=== PATIENT | male | born 1960 | race Caucasian/White ===

== ENCOUNTER 2020-07-15 06:51 | Inpatient (IN) | payer MEDICAID, SELFPAY ==
[2020-07-15] VITALS (15 sets, daily range): BP systolic 105–129; BP diastolic 51–82; PULSE 61–126; RESP 12–19; TEMP 36.4–37.5; O2SAT 93–100; BMI 24.4
--- NOTE | ~2020-07-15 | CT_ITS ---
EXAMINATION: CT abdomen pelvis w con DATE: 07/15/2020 08:26 INDICATION: Perirectal abscess. Lower abdomen pain. TECHNIQUE: Computed tomography (CT) of the abdomen and pelvis was performed with 100 cc Omnipaque 350 intravenous contrast. The dose-length product was 697.42 mGy-cm. Automated exposure control and iter ative reconstruction technique were employed. Automated exposure control and iterative reconstruction technique were employed. COMPARISON: CT dated 07/10/2019 FINDINGS: There is a right perirectal abscess measuring 5.7 x 4 x 2.7 cm. There is thickening of the proximal sigmoid colon with mild pericolonic fatty infiltration. No definite obstruction. Moderate gallbladder distention. No radiopaque stones identified. No biliary dilatation. Fatty infilt ration of the liver. There is dependent atelectasis. The spleen, pancreas, adrenal glands are unremarkable. There is a 9 m m nonobstructing left renal stone. There are small subcentimeter hypodensities of the right kidney, m ost likely benign cysts. Gallbladder is distended. Normal appendix. There is a right hip arthroplasty . There is a small fat-containing periumbilical hernia. No significant vascular abnormality. No lymph adenopathy. Prostate gland is enlarged. IMPRESSION: 1. Right perirectal abscess measuring 5.7 x 4 x 2.7 cm. 2: Abnormal thickening of the proximal sigmoid colon which may reflect focal colitis or malignancy. R ecommend GI consultation. 3: Moderate gallbladder distention, nonspecific. Reviewed, dictated and finalized at location B. IMPRESSION: 1. Right perirectal abscess measuring 5.7 x 4 x 2.7 cm. 2: Abnormal thickening of the proximal sigmoid colon which may reflect focal co litis or malignancy. Recommend GI consultation. 3: Moderate gallbladder distention, nonspecific.
[2020-07-15 07:12] LABS: Basophils Absolute Auto 0.1 K/mm3 (0.0-0.1); Basophils Percent Auto 0.4 % (0.2-1.2); Eosinophils Percent Auto 0.1 % (0-4.4); Hematocrit 37.2 % (42.0-52.0); Hemoglobin 11.5 g/dL (14.0-18.0); Immature Granulocyte Absolute 0.09 K/mm3 (0.00-0.031); Immature Granulocyte Percent A 0.5 % (0-0.5); Lymphocytes Absolute Auto 1.47 K/mm3 (0.9-3.2); Lymphocytes Percent Auto 8.6 % (18.3-44.2); Mean Corpuscular HGB Conc 30.9 g/dl (32-36); Mean Corpuscular Hemoglobin 26.9 pg (26-34); Mean Corpuscular Volume 86.9 fl (80-100); Mean Platelet Volume 8.6 fl (7.4-10.4); Monocytes Absolute Auto 1.1 K/mm3 (0.1-0.6); Monocytes Percent Auto 6.4 % (2.6-8.5); Neutrophils Absolute Auto 14.4 K/mm3 (1.3-6.7); Platelet Count Result 442 k/mm3 (150-375); Red Blood Count 4.28 M/mm3 (4.6-6.20); Red Cell Distribution Width 19.2 % (11.5-14.5); White Blood Count 17.1 K/mm3 (4.5-10.0)
[2020-07-15] MEDS: ONDANSETRON INJ 4 MG/2 ML VIAL IV PUSH (07:23)
[2020-07-15] MEDS: LACTATED RINGERS 1,000 ML 999 ML IV CONT ×2 (07:25→07:26)
[2020-07-15 07:32] LABS: Glucose 153 mg/dL (75-110)
--- NOTE | 2020-07-15 07:49 | ED.ABDPAIN ---
HPI - Abdominal Pain General Chief Complaint: Abdominal Pain Stated Complaint: abd pain Time Seen by Provider: 07/15/20 07:00 Source: patient Mode of arrival: ambulatory Limitations: no limitations History of Present Illness HPI narrative: This patient is a 59 year old male with history of Chrohn's who presents for evaluation of diarrhea, vomiting, abdominal pain and buttock cyst. Patient reports he has had diarrhea and lower abdominal pain for 2 months. He also has been having nausea and vomiting. He reports multiple episodes last night, and he believes he is dehydrated. He had a colonoscopy performed for these symptoms last month , and he was diagnosed with Chrohn's flare. He is taking norco 10/325, gabapentin, inflectra, and steroid medications. This morning he woke up with diaphoretic with nausea and vomiting. He also noticed a cyst to his buttock that is painful. He noticed this cyst on Related Data Home Medications Medication Instructions Recorded Confirmed hydrocodone-acetaminophen 1 tablet PO BID PRN 07/15/20 07/15/20 Allergies Allergy/AdvReac Type Severity Reaction Status Date / Time No Known Allergies Allergy Verified 07/15/20 07:03 Review of Systems Review of Systems: All systems reviewed & are unremarkable except as noted in HPI and below Constitutional: Constitutional: Reports chills, Reports fatigue and Reports fever(s) (subjective) Cardiovascular: Cardiovascular: Denies chest pain Gastrointestinal: Gastrointestinal: Reports abdominal pain, Reports diarrhea, Reports nausea and Reports vomiting Neurologic: Reports weakness PMFSH Past Medical History Medical History (Updated 07/15/20 @ 18:23 by Indira Oneill MD) Crohn's disease Surgical History Surgical History (Updated 07/15/20 @ 13:00 by Taylor Ballesteros NP) History of right hip replacement Family History Family History Father Esophageal cancer Sibling Asthma Social History Social History (Updated 07/15/20 @ 13:03 by Taylor Ballesteros NP) Social History: patient is and is from [facility]. His sister Collette reyes is the durable power securities attorney for healthcare. The patient is a full code. He has 1 child. He is a lifelong nonsmoker. He does use any marijuana or illicit drugs. Does not use any alcohol. 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 He is here did doing a job. Smoking status: Never smoker Alcohol intake: never Substance use: never Gender identity (if verbalized by the patient): Male Spiritual care concerns: No Exam Const: General: alert and ill appearing; No no acute distress Orientation/consciousness: patient oriented x3 Eyes: EOM: EOMs intact bilaterally Chest: Chest palpation & inspection: normal inspection of the chest Resp: Effort & Inspection: normal respiratory effort and no retractions Auscultation: clear to auscultation bilaterally Cardio: Rate: tachycardic Rhythm: regular rhythm Heart sounds: no murmurs GI: GI Palp: Yes Soft to palpation, Yes Tenderness to palpation present (GI) (LLQ), No Guarding due to palpation present (GI), No Rigid due to palpation and No Hernia present Rectal Exam: buttock abscess (right perirectal area of tenderness, erythema, fluctance, no drainage) Skin: General skin exam: normal color Rashes: no rashes Neuro: General: patient oriented x3 and moves all extremities Course Consultations Consultation #1: I discussed case with Dr. Chaney who states he recommeds admission to hospitalist. Keep him NPO and he will try to take to OR today for I and D. Date: 07/15/20 Time: 09:36 Vital Signs Vital signs: Vital Signs Temperature 99.5 F 07/15/20 06:55 Pulse Rate 126 H 07/15/20 06:55 Respiratory Rate 18 07/15/20 06:55 Blood Pressure 117/76 07/15/20 06:55 Pulse Oximetry 95 07/15/20 06:55 Temperature 97.6 F 07/15/20
[2020-07-15 08:01] LABS: Lactic Acid Reflex 0.9 mmol/L (0.7-2.1)
[2020-07-15 08:02] LABS: Alanine Aminotransferase 28 U/L (4-50); Albumin Level 3.6 g/dL (3.5-5.1); Alkaline Phosphatase 118 U/L (38-126); Anion Gap 11 mmol/L (8-16); Aspartate Amino Transferase 18 U/L (17-59); Blood Urea Nitrogen 17 mg/dL (9-20); Calcium 8.9 mg/dL (8.4-10.2); Carbon Dioxide 24 mmol/L (22-30); Chloride 100 mmol/L (98-107); Estimated Glomerular Filt Rate > 60; Lipase 13 U/L (23-300); Potassium 3.8 mmol/L (3.4-5.0); Sodium 135 mmol/L (137-145)
[2020-07-15 08:41] LABS: Add Urine Microscopic? YES; Appearance Urine Clear (Clear); Bilirubin Urine Negative (Negative); Blood Urine 1+ (Negative); Color Urine Yellow (Yellow); Glucose Urine UA Negative (Negative); Ketones Urine 2+ mg/dL (Negative); Leukocyte Esterase Ur Negative LEU/UL (Negative); Mucus Urine Rare /lpf; Nitrate Urine Negative (Negative); Protein Urine 1+ mg/dL (Negative); Specific Grav Ur 1.018 (1.001-1.035); Transitional Epi Cells Urine Rare /hpf (None Seen); Urobilinogen Urine Negative mg/dL (<2.0); WBC Urine 0-3 /hpf
[2020-07-15] MEDS: SODIUM CHLORIDE 0.9% IV 1,000 ML 125 ML IV CONT (11:23)
--- NOTE | 2020-07-15 11:36 | ADMGEN ---
This patient, Frank King, was admitted to Medical Room 242-. Patient/family oriented to hospital policies and general routines including ID bracelet, bed and alarms, visiting hours, pain management, procedures, bathroom and other care routines, personal items, smoking policy, room service/diet, and visiting hours. Valuables list has been completed. Information on how to activate the Rapid Response Team has been discussed. Patient/Family are encouraged to report perceived risks to care and to ask questions if they do not understand what they are told or what they should do.
--- NOTE | 2020-07-15 11:54 | PM.CNGS ---
Assessment and Plan Assessment and plan (1) Perirectal abscess: Code(s): K61.1 - Rectal abscess Status: Acute Assessment and Plan: the patient has evidence of a perirectal abscess. I have discussed the findings with the patient. He is too tender on physical exam to attempt bedside incision and drainage. I have recommended I&D of perirectal abscess in the OR under IV sedation. I discussed the procedure, risks, benefits, and alternatives. I discussed the typical wound care required for this postoperatively. Since [place], he will likely need to follow-up with a physician back home once he is discharged from the hospital. (2) Sepsis: Qualifiers: Sepsis type: sepsis due to unspecified organism Sepsis acute organ dysfunction status: without acute organ dysfunction Qualified Code(s): A41.9 - Sepsis, unspecified organism Code(s): A41.9 - Sepsis, unspecified organism Status: Acute Assessment and Plan: Tachycardic and elevated white blood count on presentation. Likely related to perirectal abscess. (3) Crohn's disease: Qualifiers: Gastrointestinal tract location: unspecified location Digestive disease complication type: without complication Qualified Code(s): K50.90 - Crohn's disease, unspecified, without complications Code(s): K50.90 - Crohn's disease, unspecified, without complications Status: Acute Additional Plan Thank you very much for allowing us to aid in the care of this patient. History of Present Illness Consult details Consult date: 07/15/20 Requesting physician: Indira Oneill MD Narrative: This is a 59-year-old man who presented to the emergency department with complaints of perirectal pain and swelling. 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 He states that this has been hurting him for about 4 days. Pain has been progressively worsening. He has never had anything like this in the past. He was recently diagnosed with Crohn's disease within the past couple months. He states he was having persistent chronic diarrhea and subsequently had a colonoscopy and this showed evidence of Crohn's. He is on oral steroids for this. He denies any prior history of perirectal abscesses or fistulas. A CT was obtained in the emergency department and this showed evidence of a large right perirectal abscess. Patient is having significant pain and is extremely uncomfortable with physical exam. Review of Systems Review of Systems: All systems reviewed & are unremarkable except as noted in HPI and below Eyes: Eyes: Denies change in vision ENT: Denies hearing loss, Denies neck pain and Denies sore throat Cardiovascular: Cardiovascular: Denies chest pain and Denies dyspnea Respiratory: Respiratory: Denies cough, Denies dyspnea and Denies wheezing Gastrointestinal: Gastrointestinal: Reports diarrhea Genitourinary: Genitourinary: Denies hematuria and Denies dysuria Musculoskeletal: Musculoskeletal: Denies arthralgias, Denies joint swelling and Denies neck pain Allergic/Immunologic: Allergic/Immunologic: Denies wheezing PMFSH Family History Family History Father Esophageal cancer Sibling Asthma Social History Social History Smoking status: Never smoker Alcohol intake: never Substance use: never Gender identity (if verbalized by the patient): Male Spiritual care concerns: No Meds Home Medications and Allergies Home Medications Medication Instructions Recorded Confirmed Type hydrocodone-acetaminophen 1 tablet PO BID PRN 07/15/20 07/15/20 History Allergies Allergy/AdvReac Type Severity Reaction Status Date / Time No Known Allergies Allergy Verified 07/15/20 07:03 Vital Signs Vital Signs - 24 hr 07/15/20 06:55 07/15/20 09:13 07/15/20 10:57 Temperature 37.5 C 36.5
--- NOTE | 2020-07-15 12:54 | PM.IMHP ---
H&P: HPI History of Present Illness Date/Time: 07/15/20 12:54 Chief complaint: chrohn's disease, perirectal abscess Narrative: Frank King is a 59 year old male Who has no past medical history. 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 The patient had a colonoscopy approximately 1 week ago was diagnosed with Crohn's. He was placed on [place], gabapentin, and steroid medication. The patient stated that his sacral area developed some soreness on this past . He did not notice that he had an abscess on a sacral area. Today acute he came into the emergency room with complaints of diarrhea vomiting and diarrhea in a box cyst. The patient has been having abdominal pain for 2 months and had a colonoscopy for diagnosis. Patient woke up today with diaphoresis nausea vomiting. He discovered that his cyst has been pretty painful today. Patient had a 99.5 temperature. H&H 11.5 and 37.2. H&H 11.5 and 37.2. Right perirectal abscess measuring 5.7 times for high as 2.7 cm abnormal thickening of the proximal sigmoid colon which may reflect focal colitis or malignancy recommend GI consult. Moderate gallbladder distention nonspecific. Patient had a colonoscopy 1 week ago. Patient was started on IV fluids he was started on IV Zosyn and given [place] in the ER. Date of service 07/15/2020 Review of Systems Review of Systems: All systems reviewed & are unremarkable except as noted in HPI and below Constitutional: Constitutional: Reports as per HPI and Reports no additional constitutional complaints Eyes: Eyes: Reports as per HPI and Reports no additional eye complaints ENT: Reports system reviewed and no additional complaints, except as documented and Reports Normal hearing present Cardiovascular: Cardiovascular: Reports no additional cardiovascular complaints Respiratory: Respiratory: Reports no additional respiratory complaints and Reports no additional respiratory complaints Gastrointestinal: Gastrointestinal: Reports as per HPI and Reports no additional gastrointestinal complaints Musculoskeletal: Musculoskeletal: Reports no additional musculoskeletal complaints Integumentary/Breasts: Skin/Breast: Reports system reviewed and no additional complaints, except as docu and Reports as per HPI Neurologic: Reports system reviewed and no additional complaints, except as documented, Reports as per HPI and Reports Normal hearing present Psychiatric: Psychiatric: Reports no additional psychiatric complaints and Reports as per HPI Endocrine: Endocrine: Reports no additional endocrine complaints Hematologic/Lymphatic: Hematologic/Lymphatic: Reports no additional hematologic/lymphatic complaints Allergic/Immunologic: Allergic/Immunologic: Reports no additional allergic/immunologic complaints [facility] Surgical History Surgical History (Updated 07/15/20 @ 13:00 by Taylor Ballesteros NP) History of right hip replacement Family History Family History Father Esophageal cancer Sibling Asthma Social History Social History (Updated 07/15/20 @ 13:03 by Taylor Ballesteros NP) Social History: patient is and is from [facility]. His sister Collette reyes is the durable power defense attorney for healthcare. The patient is a full code. He has 1 child. He is a lifelong nonsmoker. He does use any marijuana or illicit drugs. Does not use any alcohol. 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 Smoking status: Never smoker Alcohol intake: never Substance use: never Gender identity (if verbalized by the patient): Male Spiritual care concerns: No Meds Home Medications and Allergies Home Medications Medication Instructions Recorded Confirmed Type hydrocodone-acetaminophen 1 tablet PO BID PRN 07/15/20 07/15/20 History Allergies Allergy/AdvReac Type Severity Reaction S
[2020-07-15] MEDS: LACTATED RINGERS 1,000 ML 30 ML IV CONT (13:45)
--- NOTE | 2020-07-15 13:45 | PC.NURSE ---
To OR per bed, IV intact. Report given to MALLY Reyes.
--- NOTE | 2020-07-15 14:09 | WPDANESEPPF ---
Anes - Initial Pre Proc Eval Procedure: Operation Date: 07/15/20 15:00 Proposed Procedures p Incision and Drainage Nicole-Rectal Abscess - Albert Reddy DO Date/Time: 07/15/20 14:09 Surgeon: Maureen Pre Op Diagnosis: chrohn's disease, perirectal abscess Patient Data Age: 59 Gender: M Height: 1.88 m Weight: 86.2 kg Last Vital Signs Temp 36.8 C 07/15/20 13:52 Pulse 102 H 07/15/20 13:52 Resp 16 07/15/20 13:52 BP 120/71 07/15/20 13:52 Pulse Ox 95 07/15/20 13:52 Allergies Allergy/AdvReac Type Severity Reaction Status Date / Time No Known Allergies Allergy Verified 07/15/20 07:03 Home Medications Medication Instructions Recorded Confirmed Type hydrocodone-acetaminophen 1 tablet PO BID PRN 07/15/20 07/15/20 History Laboratory Tests 07/15/20 07/15/20 07/15/20 07:02 07:02 07:42 WBC 17.1 K/mm3 H K/mm3 (4.5-10.0) RBC 4.28 M/mm3 L M/mm3 (4.6-6.20) Hgb 11.5 g/dL L g/dL (14.0-18.0) Hct 37.2 % L % (42.0-52.0) MCV 86.9 fl fl (80-100) MCH 26.9 pg pg (26-34) MCHC 30.9 g/dl L g/dl (32-36) RDW 19.2 % H % (11.5-14.5) Plt Count 442 k/mm3 H k/mm3 (150-375) MPV 8.6 fl fl (7.4-10.4) Immature Gran % (Auto) 0.5 % % (0-0.5) Neut % (Auto) 84.0 % H % (45.5-73.1) Lymph % (Auto) 8.6 % L % (18.3-44.2) [place] % (Auto) 6.4 % % (2.6-8.5) Eos % (Auto) 0.1 % % (0-4.4) Baso % (Auto) 0.4 % % (0.2-1.2) Lymph # (Auto) 1.47 K/mm3 K/mm3 (0.9-3.2) [place] # (Auto) 1.1 K/mm3 H K/mm3 (0.1-0.6) Eos # (Auto) 0.0 K/mm3 K/mm3 (0-0.3) Baso # (Auto) 0.1 K/mm3 K/mm3 (0.0-0.1) Abs Immat Gran (auto) 0.09 K/mm3 H K/mm3 (0.00-0.031) Absolute Neuts (auto) 14.4 K/mm3 H K/mm3 (1.3-6.7) Absolute Nucleated RBC 0.0 K/mm3 K/mm3 (0.0-0.012) Nucleated RBC % 0.0 % % (0.0-0.2) Sodium 135 mmol/L L mmol/L (137-145) Potassium 3.8 mmol/L mmol/L (3.4-5.0) Chloride 100 mmol/L mmol/L (98-107) Carbon Dioxide 24 mmol/L mmol/L (22-30) Anion Gap 11 mmol/L mmol/L (8-16) BUN 17 mg/dL mg/dL (9-20) Creatinine 0.60 mg/dL L mg/dL (0.7-1.3) Estim Creat Clear Calc Not Reportable Estimated GFR > 60 (59 - ) Glucose 153 mg/dL H mg/dL (75-110) Lactic Acid 0.9 mmol/L mmol/L (0.7-2.1) Calcium 8.9 mg/dL mg/dL (8.4-10.2) Total Bilirubin 1.0 mg/dL mg/dL (0.2-1.3) AST 18 U/L U/L (17-59) ALT 28 U/L U/L (4-50) Alkaline Phosphatase 118 U/L U/L (38-126) Total Protein 7.0 g/dL g/dL (6.3-8.2) Albumin 3.6 g/dL g/dL (3.5-5.1) Lipase 13 U/L L U/L (23-300) Urine Color Urine Appearance Urine pH Ur Specific [place] Urine Protein Urine Glucose (UA) Urine Ketones Ur Blood (Man) Urine Nitrate Urine Bilirubin Urine Urobilinogen Leukocyte Esterase Rfl Urine RBC Urine WBC Ur Transition Epith Cell Hyaline Casts Urine Mucus 07/15/20 08:20 WBC RBC Hgb Hct MCV MCH MCHC RDW Plt Count MPV Immature Gran % (Auto) Neut % (Auto) Lymph % (Auto) [place] % (Auto) Eos % (Auto) Baso % (Auto) Lymph # (Auto) [place] # (Auto) Eos # (Auto) Baso # (Auto) Abs Immat Gran (auto) Absolute Neuts (auto) Absolute Nucleated RBC Nucleated RBC % Sodium Potassium Chloride Carbon Dioxide Anion Gap BUN Creatinine
--- NOTE | 2020-07-15 14:46 | WPDHPUPDATE1 ---
History and Physical Update Update Date/Time: 07/15/20 14:46 History and Physical has been reviewed, including an updated exam of the patient. There are NO changes in the patient's condition. Risks, benefits, and alternatives have been discussed and questions answered. Patient agrees to proceed with procedure.
[2020-07-15] MEDS: KETOROLAC 30 MG/ML VIAL (*BKC) 15 MG IV PUSH (15:27)
--- NOTE | 2020-07-15 15:36 | P.OP_ITS ---
Procedure Note - Detailed Date of procedure: 07/15/20 Pre-op diagnosis: chrohn's disease, perirectal abscess Post-op diagnosis: same ( right posterior perirectal abscess) Procedure performed: Incision and drainage of complex perirectal abscess Description of procedure: * Procedure as well as risks, benefits, and alternatives were discussed with the patient. Written consent was obtained and placed in chart prior to procedure. Patient was brought back to surgical suite. He was placed supine on operating table. Time-out was done to confirm patient and procedure. He was placed under general anesthesia with an LMA by the anesthesia department. He was then repositioned to dorsal lithotomy position. His perirectal area was prepped and draped in sterile fashion using Betadine prep. His perirectal region was carefully inspected. A right posterior abscess was identified with fluctuance and a small opening with purulence drainage. 0.5% bupivacaine with epinephrine was infiltrated locally around this area. A 3 cm incision was then made using a 15 blade scalpel over the area of fluctuance. Purulence fluid was drained and the abscess cavity was completely evacuated. Loculations were broken up using blunt dissection. Hemostasis was then achieved with electrocautery. The area was irrigated with sterile saline. No other abnormalities were identified. 1/2 inch iodoform gauze was then packed within the wound. 4 x 4 gauze, ABD pad, and mesh underwear were applied. The patient was then awakened from anesthesia, extubated, and transferred to recovery. 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 He was found to have an elevated white blood count and tachycardia. On exam he had significant pain and swelling with erythema in the right posterior perirectal region. CT confirmed evidence of a perirectal abscess. The patient was also recently diagnosed with Crohn's disease and has been on steroids for this. Discussions were made with the patient about treatment options, and decision was made to proceed with urgent incision and drainage of perirectal abscess. Patient was found to have a right posterior perirectal abscess. There was an area of pinpoint wound opening with purulence drainage in the far right posterior region. This extended more anteriorly towards the right posterior perianal region. An incision was made over this area of fluctuance and a significant amount of purulence was drained. Loculations were broken up and then the wound was packed with half-inch iodoform gauze. No specimens were obtained for pathology.
[2020-07-15] MEDS: BUPIVACAINE/EPINEPHRINE 0.5% 30 ML VIAL INFILTRATE (15:39)
--- NOTE | 2020-07-15 16:47 | PC.NURSE ---
Returned from OR per bed. Report received from MALLY Dixon.
[2020-07-15] MEDS: MORPHINE SULFATE 2 MG/ML INJ IV PUSH (18:42)
[2020-07-15] MEDS: LACTATED RINGERS 1,000 ML 100 ML IV CONT (19:51)
[2020-07-16] MEDS: MORPHINE SULFATE 4 MG/ML INJ IV PUSH (02:34)
[2020-07-16 02:37] VITALS: BP 123/62; PULSE 68; RESP 14; TEMP 36.7; O2SAT 97
[2020-07-16 05:27] LABS: Basophils Percent Auto 0.1 % (0.2-1.2); Hematocrit 32.1 % (42.0-52.0); Hemoglobin 9.6 g/dL (14.0-18.0); Immature Granulocyte Absolute 0.04 K/mm3 (0.00-0.031); Immature Granulocyte Percent A 0.5 % (0-0.5); Lymphocytes Percent Auto 13.8 % (18.3-44.2); Mean Corpuscular HGB Conc 29.9 g/dl (32-36); Mean Corpuscular Hemoglobin 26.3 pg (26-34); Mean Corpuscular Volume 87.9 fl (80-100); Mean Platelet Volume 9.2 fl (7.4-10.4); Monocytes Absolute Auto 0.4 K/mm3 (0.1-0.6); Monocytes Percent Auto 4.4 % (2.6-8.5); Neutrophils Absolute Auto 6.5 K/mm3 (1.3-6.7); Neutrophils Percent Auto 81.2 % (45.5-73.1); Platelet Count Result 372 k/mm3 (150-375); Red Blood Count 3.65 M/mm3 (4.6-6.20); Red Cell Distribution Width 18.6 % (11.5-14.5)
[2020-07-16 05:46] LABS: Alanine Aminotransferase 19 U/L (4-50); Albumin Level 2.9 g/dL (3.5-5.1); Alkaline Phosphatase 86 U/L (38-126); Anion Gap 5 mmol/L (8-16); Aspartate Amino Transferase 13 U/L (17-59); Bilirubin,Total 0.3 mg/dL (0.2-1.3); Blood Urea Nitrogen 13 mg/dL (9-20); Calcium 8.3 mg/dL (8.4-10.2); Carbon Dioxide 26 mmol/L (22-30); Chloride 107 mmol/L (98-107); Estimated CRCL calculation 128 ml/min; Estimated Glomerular Filt Rate > 60; Glucose 148 mg/dL (75-110); Potassium 4.1 mmol/L (3.4-5.0); Sodium 138 mmol/L (137-145)
[2020-07-16 06:00] VITALS: BP 97/58; PULSE 63; RESP 18; TEMP 36.5; O2SAT 97
[2020-07-16] MEDS: MORPHINE SULFATE 2 MG/ML INJ IV PUSH ×2 (08:21→22:32)
[2020-07-16] MEDS: ENOXAPARIN 40 MG/0.4 ML SYRINGE SUB-Q (08:22)
--- NOTE | 2020-07-16 09:20 | P.PNAN_ITS ---
Anes - Prog Note Post-Op Date/Time: 07/16/20 09:20 Cardiovascular status: normal Respiratory status: normal Airway patency: baseline Mental status: baseline Post-Op hydration status: normal Vital Signs: Last Vital Signs Temp 36.5 C 07/16/20 06:00 Pulse 63 07/16/20 06:00 Resp 18 07/16/20 06:00 BP 97/58 L 07/16/20 06:00 Pulse Ox 97 07/16/20 06:00 Pain Score (VAS): 0 I/O: Intake & Output 07/15/20 07/16/20 07/16/20 23:59 07:59 15:59 Intake Total 9010 589 7612 Output Total 1250 Balance 1470 -600 1240 Laboratory Tests 07/16/20 05:01 07/16/20 05:01 07/16/20 07/16/20 05:01 05:01 WBC 8.0 RBC 3.65 L Hgb 9.6 L Hct 32.1 L MCV 87.9 MCH 26.3 MCHC 29.9 L RDW 18.6 H Plt Count 372 MPV 9.2 Immature Gran % (Auto) 0.5 Neut % (Auto) 81.2 H Lymph % (Auto) 13.8 L [place] % (Auto) 4.4 Eos % (Auto) 0.0 Baso % (Auto) 0.1 L Lymph # (Auto) 1.10 [place] # (Auto) 0.4 Eos # (Auto) 0.0 Baso # (Auto) 0.0 Abs Immat Gran (auto) 0.04 H Absolute Neuts (auto) 6.5 Absolute Nucleated RBC 0.0 Nucleated RBC % 0.0 Sodium 138 Potassium 4.1 Chloride 107 Carbon Dioxide 26 Anion Gap 5 L BUN 13 Creatinine 0.60 L Estim Creat Clear Calc 128 Estimated GFR > 60 Glucose 148 H Calcium 8.3 L Total Bilirubin 0.3 AST 13 L ALT 19 Alkaline Phosphatase 86 Total Protein 6.0 L Albumin 2.9 L Post-procedural complaints: none Patient Feedback: Patient satisfied with anesthetic care.
[2020-07-16 10:26] VITALS: O2SAT 96
--- NOTE | 2020-07-16 11:03 | PM.IMPN ---
Progress Note: A&P Assessment and Plan (1) Perirectal abscess: Code(s): K61.1 - Rectal abscess Status: Acute Assessment and Plan: He is s/p incision and drainage by Dr. Reddy performed on 07/15/2020. He tolerated the procedure well and pain is well controlled. General surgery is following and recommendations are appreciated. Continue with Zosyn at this time. Blood cultures are pending. No specimens from I&D obtained for pathology. Appreciate surgery recommendations for antibiotics. Analgesics as needed for pain (2) Sepsis: Qualifiers: Sepsis type: sepsis due to unspecified organism Sepsis acute organ dysfunction status: without acute organ dysfunction Qualified Code(s): A41.9 - Sepsis, unspecified organism Code(s): A41.9 - Sepsis, unspecified organism Status: Acute Assessment and Plan: Suspected source of infection is perirectal abscess. Patient met SIRS criteria with tachycardia and leukocytosis. BP is on lower end. WBC was 17.0 at admission and has improved to 8.0 today. He remains afebrile. Continue Zosyn as above IV fluids have been discontinued. Patient is tolerating p.o. intake. Blood cultures pending. (3) Crohn's disease: Qualifiers: Gastrointestinal tract location: unspecified location Digestive disease complication type: without complication Qualified Code(s): K50.90 - Crohn's disease, unspecified, without complications Code(s): K50.90 - Crohn's disease, unspecified, without complications Status: Chronic Assessment and Plan: This is a new diagnosis for him. He recently had an inflectra infusion about 1 week ago. He is also on low-dose daily prednisone. Hold p.o. prednisone given active infection. He will need to follow-up with his rn traveling, who is located in [place], where he resides. Subjective Date/time seen: 07/16/20 11:03 Interval history: Date of service: 07/16/2020 Mr. King is a 59-year-old male with a history of Crohn's disease who is seen in follow-up for perirectal abscess. 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 He is s/p I&D by Dr. Reddy on 07/15/2020. He is feeling well today. He reports his pain is well controlled with his pain medication and is rated as 5/10 currently. It was about 7.5 this morning. Pain increases with positional changes. He did report some sweating overnight but denies any fevers, chills, or sweats today. No nausea or vomiting. He ate a good breakfast this morning and his appetite is good. He reports he had been having some diarrhea but has not had any bowel movements today. he has mild lower abdominal pain but denies cramping or bloating. He denies shortness of breath, cough, chest pain, bleeding, bruising, hematuria, dysuria, dizziness, lightheadedness, weakness, or fatigue. Review of Systems Review of Systems: Narrative: A 12 point review of systems was reviewed with pertinent positives and negatives as per HPI. Exam Narrative: Exam Narrative: Mr. King is a well-nourished, well-appearing 59-year-old male who is lying supine in bed. He appears comfortable and is in no acute respiratory distress. HR 63, BP 97/58, RR 18, T 97.7?, 97% on room air Neuro: awake, alert and oriented x4, speech clear, no focal neuro deficits noted HEENMT: normocephalic, atraumatic, EOMI, sclerae anicteric, moist oral mucosa, normal oropharynx Neck: supple, no lymphadenopathy Respiratory: clear to auscultation bilaterally, nonlabored breathing Cardio: regular rate, regular rhythm with S1-S2 Abdomen: nondistended, normoactive bowel sounds, soft, mildly tender to palpation in suprapubic region, no rigidity or guarding Rectal: rectum was inspected, covered with bandage that is c/d/i Extremities: no edema, erythema, cyanosis, clubbing, or tenderness to palpation, DP pulses 2+ bilaterally Skin: no
--- NOTE | 2020-07-16 13:21 | PM.PNGS ---
Progress Note: A&P Assessment and Plan (1) Perirectal abscess: Code(s): K61.1 - Rectal abscess Status: Acute Assessment and Plan: Packing removed today. May shower. Change gauze daily. Continue antibiotics. (2) Sepsis: Code(s): A41.9 - Sepsis, unspecified organism Status: Acute (3) Crohn's disease: Qualifiers: Gastrointestinal tract location: unspecified location Digestive disease complication type: without complication Qualified Code(s): K50.90 - Crohn's disease, unspecified, without complications Code(s): K50.90 - Crohn's disease, unspecified, without complications Status: Chronic Subjective Subjective Date/Time Seen: 07/16/20 13:21 Still having some pain. No fevers. Having drainage from wound. Exam GI: Other: Right posterior perirectal abscess incision has scant purulent drainage. No surrounding erythema. No fluctuance. Objective Data Vital Signs Vital Signs: Vital Signs - 24 hr 07/15/20 13:52 07/15/20 15:37 07/15/20 15:45 Temperature 36.8 C 36.6 C Pulse Rate 102 H 95 87 Respiratory Rate 16 15 14 Blood Pressure 120/71 117/82 115/80 Pulse Oximetry 95 100 100 07/15/20 15:50 07/15/20 16:05 07/15/20 16:20 Temperature Pulse Rate 85 91 93 Respiratory Rate 14 12 12 Blood Pressure 111/74 105/71 108/73 Pulse Oximetry 100 97 95 07/15/20 16:35 07/15/20 16:45 07/15/20 17:00 Temperature 36.4 C L 36.7 C Pulse Rate 96 96 86 Respiratory Rate 12 16 16 Blood Pressure 115/76 114/66 118/68 Pulse Oximetry 93 94 95 07/15/20 17:30 07/15/20 18:30 07/15/20 20:12 Temperature 36.4 C 36.4 C 36.6 C Pulse Rate 81 93 61 Respiratory Rate 16 16 14 Blood Pressure 129/71 120/64 120/51 L Pulse Oximetry 97 96 97 07/16/20 02:37 07/16/20 06:00 07/16/20 10:26 Temperature 36.7 C 36.5 C Pulse Rate 68 63 Respiratory Rate 14 18 Blood Pressure 123/62 97/58 L Pulse Oximetry 97 97 96 Intake/Output Intake/Output: Intake & Output 07/13/20 07/14/20 07/15/20 07/16/20 23:59 23:59 23:59 23:59 Intake Total 3620 1940 Output Total 250 1250 Balance 3370 690 Meds/Results Medications: Active Medications Generic Name Dose Route Start Last Admin Trade Name Freq PRN Reason Stop Dose Admin Acetaminophen 650 mg 07/15/20 16:54 Tylenol Tablet PO Q6H PRN Mild Pain (1-3) or Fever Hydrocodone Bitart/Acetaminophen 1 tab 07/15/20 16:54 [place] 5-325 Mg PO Q4H PRN Pain Rated 4-6 Hydrocodone Bitart/Acetaminophen 1 tab 07/15/20 16:54 07/16/20 10:18 [place] 7.5-325 Mg PO 1 tab Q4H PRN Administration Pain Rated 7-10 Enoxaparin Sodium 40 mg 07/16/20 09:00 07/16/20 08:22 Lovenox SUB-Q 40 mg DAILY ARMANI Administration Piperacillin/Tazobactam/Dextrose 3.375 gm in 50 mls @ 100 mls/hr 07/15/20 15:00 07/16/20 08:51 Zosyn 3.375 Gm/D5w 50ml Pm IVPB Infused Q6H ARMANI Infusion Morphine Sulfate 2 mg 07/15/20 16:54 07/16/20 08:21 Morphine Sulfate Inj IV PUSH 2 mg Q2H PRN Administration Pain Rated 4-6 Morphine Sulfate 4 mg 07/15/20 16:54 07/16/20 02:34 Morphine Sulfate Inj IV PUSH 4 mg Q2H PRN Administration Pain Rated 7-10 Ondansetron HCl 4 mg 07/15/20 09:56 Zofran Inj IV PUSH Q4H PRN Nausea Radiology Results: ITS Impressions Abdomen/Pelvis CT 07/15/20 08:40 IMPRESSION: 1. Right perirectal abscess measuring 5.7 x 4 x 2.7 cm. 2: Abnormal thickening of the proximal sigmoid colon which may reflect focal colitis or malignancy. Recommend GI consultation. 3: Moderate gallbladder distention, nonspecific. Labs Labs: Laboratory Results - last 24 hr 07/16/20 07/16/20 05:01 05:01 WBC 8.0 RBC 3.65 L Hgb 9.6 L Hct 32.1 L MCV 87.9 MCH 26.3 MCHC 29.9 L RDW 18.6 H Plt Count 372 MPV 9.2 Immature Gran % (Auto) 0.5 Neut % (Auto) 81.2 H Lymph % (Auto) 13.8 L Coleman % (Auto) 4.4 Eos % (Auto) 0.0 Baso % (Aut
--- NOTE | 2020-07-16 13:33 | WPDGICN ---
Assessment and Plan Assessment and plan (1) Nicole-rectal abscess: Code(s): K61.1 - Rectal abscess Status: Acute Assessment and Plan: feeling better after I&D, continue with antibiotics (2) Acute Crohn's disease: Code(s): K50.90 - Crohn's disease, unspecified, without complications Status: Acute Assessment and Plan: he will be due to have next dose inflectra next week by his GI doctor in [place] will give iv solumedrol for now (he was on oral prednisone) and continue to monitor (3) Sepsis: Code(s): A41.9 - Sepsis, unspecified organism Status: Acute Assessment and Plan: better after drainage of abscess (4) Leukocytosis: Code(s): D72.829 - Elevated white blood cell count, unspecified Status: Acute Assessment and Plan: improved after drainage (5) Diarrhea: Code(s): R19.7 - Diarrhea, unspecified Status: Acute GI Consult Note Consult date/time: 07/16/20 13:33 Reason for consult: crohn's with perianal abscess HPI: Frank King is a 59 year old male 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 He came to the emergency department with perirectal pain and swelling over the past 4 days. He had elevated white blood count and tachycardia. CT confirmed evidence of a perirectal abscess, also abnormal thickening of the proximal sigmoid colon and taken to OR by surgery for I&D, on antibiotics and feeling better Review of Systems Constitutional: Constitutional: Reports chills and Denies weakness Eyes: Eyes: Denies blurry vision ENT: Reports Normal hearing present, Denies headache(s) and Denies neck pain Cardiovascular: Cardiovascular: Denies chest pain and Denies dyspnea Respiratory: Respiratory: Denies dyspnea Gastrointestinal: Gastrointestinal: Reports no additional gastrointestinal complaints Genitourinary: Genitourinary: Denies dysuria Musculoskeletal: Musculoskeletal: Denies neck pain Integumentary/Breasts: Skin/Breast: Denies dry skin Neurologic: Reports Normal hearing present, Denies headache(s) and Denies weakness Psychiatric: Psychiatric: Denies anxiety Endocrine: Endocrine: Denies change in body appearance Hematologic/Lymphatic: Hematologic/Lymphatic: Denies easy bleeding Allergic/Immunologic: Allergic/Immunologic: Denies urticaria PMFSH Past Medical History Medical History (Updated 07/16/20 @ 13:46 by Arnulfo Munoz MD) Crohn's disease Diarrhea Leukocytosis Surgical History Surgical History (Updated 07/15/20 @ 13:00 by Taylor Ballesteros NP) History of right hip replacement Family History Family History Father Esophageal cancer Sibling Asthma Social History Social History (Updated 07/15/20 @ 13:03 by Taylor Ballesteros NP) Social History: patient is and is from [facility]. His sister Collette reyes is the durable power district attorney for healthcare. The patient is a full code. He has 1 child. He is a lifelong nonsmoker. He does use any marijuana or illicit drugs. Does not use any alcohol. 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 He is here did doing a job. Smoking status: Never smoker Alcohol intake: never Substance use: never Gender identity (if verbalized by the patient): Male Spiritual care concerns: No Meds Home Medications and Allergies Home Medications Medication Instructions Recorded Confirmed Type gabapentin 300 mg PO TID 07/15/20 07/15/20 History hydrocodone-acetaminophen 1 tablet PO BID PRN 07/15/20 07/15/20 History prednisone 10 mg PO QID 07/15/20 07/15/20 History Allergies Allergy/AdvReac Type Severity Reaction Status Date / Time No Known Allerg
[2020-07-16 14:00] VITALS: BP 109/62; PULSE 81; RESP 16; TEMP 36.7; O2SAT 95
[2020-07-16] MEDS: methylPREDNISolone SOD SUCC 40 MG VIAL IV PUSH (14:27)
[2020-07-16 22:00] VITALS: BP 123/70; PULSE 66; RESP 16; TEMP 36.6; O2SAT 95
[2020-07-17] MEDS: methylPREDNISolone SOD SUCC 40 MG VIAL IV PUSH ×2 (02:43→13:59)
[2020-07-17 05:32] LABS: Hematocrit 33.3 % (42.0-52.0); Hemoglobin 10.1 g/dL (14.0-18.0); Immature Granulocyte Absolute 0.06 K/mm3 (0.00-0.031); Immature Granulocyte Percent A 0.8 % (0-0.5); Lymphocytes Absolute Auto 1.46 K/mm3 (0.9-3.2); Lymphocytes Percent Auto 19.1 % (18.3-44.2); Mean Corpuscular HGB Conc 30.3 g/dl (32-36); Mean Corpuscular Hemoglobin 26.9 pg (26-34); Mean Corpuscular Volume 88.8 fl (80-100); Mean Platelet Volume 8.9 fl (7.4-10.4); Monocytes Absolute Auto 0.2 K/mm3 (0.1-0.6); Monocytes Percent Auto 3.1 % (2.6-8.5); Neutrophils Absolute Auto 5.9 K/mm3 (1.3-6.7); Platelet Count Result 440 k/mm3 (150-375); Red Blood Count 3.75 M/mm3 (4.6-6.20); Red Cell Distribution Width 18.4 % (11.5-14.5); White Blood Count 7.7 K/mm3 (4.5-10.0)
[2020-07-17 05:52] LABS: Alanine Aminotransferase 18 U/L (4-50); Albumin Level 3.4 g/dL (3.5-5.1); Alkaline Phosphatase 86 U/L (38-126); Anion Gap 3 mmol/L (8-16); Aspartate Amino Transferase 15 U/L (17-59); Bilirubin,Total 0.2 mg/dL (0.2-1.3); Blood Urea Nitrogen 13 mg/dL (9-20); Calcium 8.6 mg/dL (8.4-10.2); Carbon Dioxide 26 mmol/L (22-30); Chloride 104 mmol/L (98-107); Estimated CRCL calculation 128 ml/min; Estimated Glomerular Filt Rate > 60; Glucose 216 mg/dL (75-110); Potassium 4.3 mmol/L (3.4-5.0); Sodium 133 mmol/L (137-145)
[2020-07-17 06:00] VITALS: BP 145/74; PULSE 61; RESP 18; TEMP 36.4; O2SAT 93
[2020-07-17] MEDS: ENOXAPARIN 40 MG/0.4 ML SYRINGE SUB-Q (08:25)
--- NOTE | 2020-07-17 09:59 | PM.PNGS ---
Progress Note: A&P Assessment and Plan (1) Nicole-rectal abscess: Code(s): K61.1 - Rectal abscess Status: Acute Assessment and Plan: Continues to improve. OK to discharge from surgical standpoint. Follow up with PCP/GI back home. Continue daily dressing changes until wound heals. (2) Crohn's disease: Qualifiers: Gastrointestinal tract location: unspecified location Digestive disease complication type: without complication Qualified Code(s): K50.90 - Crohn's disease, unspecified, without complications Code(s): K50.90 - Crohn's disease, unspecified, without complications Status: Chronic Subjective Subjective Date/Time Seen: 07/17/20 09:59 Much less drainage from wound today. Pain gradually improving. No fevers. Exam GI: Other: Perirectal abscess wound healing with minimal drainage. No erythema. Objective Data Vital Signs Vital Signs: Vital Signs - 24 hr 07/16/20 10:26 07/16/20 14:00 07/16/20 22:00 Temperature 36.7 C 36.6 C Pulse Rate 81 66 Respiratory Rate 16 16 Blood Pressure 109/62 123/70 Pulse Oximetry 96 95 95 07/17/20 06:00 Temperature 36.4 C L Pulse Rate 61 Respiratory Rate 18 Blood Pressure 145/74 H Pulse Oximetry 93 Intake/Output Intake/Output: Intake & Output 07/14/20 07/15/20 07/16/20 07/17/20 23:59 23:59 23:59 23:59 Intake Total 3620 3480 940 Output Total 250 1250 Balance 3370 2230 940 Meds/Results Medications: Active Medications Generic Name Dose Route Start Last Admin Trade Name Freq PRN Reason Stop Dose Admin Acetaminophen 650 mg 07/15/20 16:54 Tylenol Tablet PO Q6H PRN Mild Pain (1-3) or Fever Hydrocodone Bitart/Acetaminophen 1 tab 07/15/20 16:54 07/17/20 08:25 [place] 5-325 Mg PO 1 tab Q4H PRN Administration Pain Rated 4-6 Hydrocodone Bitart/Acetaminophen 1 tab 07/15/20 16:54 07/17/20 03:48 [place] 7.5-325 Mg PO 1 tab Q4H PRN Administration Pain Rated 7-10 Enoxaparin Sodium 40 mg 07/16/20 09:00 07/17/20 08:25 Lovenox SUB-Q 40 mg DAILY ARMANI Administration Piperacillin/Tazobactam/Dextrose 3.375 gm in 50 mls @ 100 mls/hr 07/15/20 15:00 07/17/20 08:55 Zosyn 3.375 Gm/D5w 50ml Pm IVPB Infused Q6H ARMANI Infusion Methylprednisolone Sodium Succinate 40 mg 07/16/20 14:00 07/17/20 02:43 Solu-Medrol IV PUSH 40 mg Q12H ARMANI Administration Morphine Sulfate 2 mg 07/15/20 16:54 07/16/20 22:32 Morphine Sulfate Inj IV PUSH 2 mg Q2H PRN Administration Pain Rated 4-6 Morphine Sulfate 4 mg 07/15/20 16:54 07/16/20 02:34 Morphine Sulfate Inj IV PUSH 4 mg Q2H PRN Administration Pain Rated 7-10 Ondansetron HCl 4 mg 07/15/20 09:56 Zofran Inj IV PUSH Q4H PRN Nausea Radiology Results: ITS Impressions Abdomen/Pelvis CT 07/15/20 08:40 IMPRESSION: 1. Right perirectal abscess measuring 5.7 x 4 x 2.7 cm. 2: Abnormal thickening of the proximal sigmoid colon which may reflect focal colitis or malignancy. Recommend GI consultation. 3: Moderate gallbladder distention, nonspecific. Labs Labs: Laboratory Results - last 24 hr 07/17/20 07/17/20 04:54 04:54 WBC 7.7 RBC 3.75 L Hgb 10.1 L Hct 33.3 L MCV 88.8 MCH 26.9 MCHC 30.3 L RDW 18.4 H Plt Count 440 H MPV 8.9 Immature Gran % (Auto) 0.8 H Neut % (Auto) 77.0 H Lymph % (Auto) 19.1 [place] % (Auto) 3.1 Eos % (Auto) 0.0 Baso % (Auto) 0.0 L Lymph # (Auto) 1.46 [place] # (Auto) 0.2 Eos # (Auto) 0.0 Baso # (Auto) 0.0 Abs Immat Gran (auto) 0.06 H Absolute Neuts (auto) 5.9 Absolute Nucleated RBC 0.0 Nucleated RBC % 0.0 Sodium 133 L Potassium 4.3 Chloride 104 Carbon Dioxide 26 Anion Gap 3 L BUN 13 Creatinine 0.60 L Estim Creat Clear Calc 128 Estimated GFR > 60 Glucose 216 H Calcium 8.6 Total Bilirubin 0.2 AST 15 L ALT 18 Alkaline Phosphatase 86 Total Protein 7.0 Album
--- NOTE | 2020-07-17 10:26 | WPDGIPROGNO ---
Progress Note: A&P Assessment and Plan (1) Nicole-rectal abscess: Code(s): K61.1 - Rectal abscess Status: Acute Assessment and Plan: improve, ok to discharge (2) Acute Crohn's disease: Code(s): K50.90 - Crohn's disease, unspecified, without complications Status: Acute Assessment and Plan: on iv steroids, ok to transition to oral- will need slow taper of steroids with follow up with his GI doctor in [place] to continue receiving his inflectra he is planning to fly tomorrow (3) Leukocytosis: Code(s): D72.829 - Elevated white blood cell count, unspecified Status: Acute Assessment and Plan: resolved (4) Diarrhea: Code(s): R19.7 - Diarrhea, unspecified Status: Acute Assessment and Plan: improved Subjective Date/time seen: 07/17/20 10:26 Interval history: less drainage and less tender. Tolerating diet and diarrhea improved Review of Systems Review of Systems: All systems reviewed & are unremarkable except as noted in HPI and below Exam Const: General: comfortable and no acute distress HENMT: General nose exam: Normal nares present Eyes: General: appearance normal, both eyes and all related structures Neck: Neck: no JVD Resp: Auscultation: clear to auscultation bilaterally Cardio: Rate: regular rate Rhythm: regular rhythm GI: Inspection: non-distended GI Palp: Yes Soft to palpation Auscultation: normal bowel sounds Rectal Exam: other (minimal drainage from perirectal area, better) Skin: General skin exam: normal color Neuro: General: gait normal Speech: normal speech Extrem: General: normal to inspection Psych: Mental Status: mental status grossly normal Objective Data Vital Signs Vital Signs: Vital Signs - 24 hr 07/16/20 14:00 07/16/20 22:00 07/17/20 06:00 Temperature 98.0 F 97.9 F 97.5 F L Pulse Rate 81 66 61 Respiratory Rate 16 16 18 Blood Pressure 109/62 123/70 145/74 H Pulse Oximetry 95 95 93 Intake/Output Intake/Output: Intake & Output 07/14/20 07/15/20 07/16/20 07/17/20 23:59 23:59 23:59 23:59 Intake Total 3620 3480 940 Output Total 250 1250 Balance 3370 2230 940 Meds/Results Medications: Active Medications Generic Name Dose Route Start Last Admin Trade Name Freq PRN Reason Stop Dose Admin Acetaminophen 650 mg 07/15/20 16:54 Tylenol Tablet PO Q6H PRN Mild Pain (1-3) or Fever Hydrocodone Bitart/Acetaminophen 1 tab 07/15/20 16:54 07/17/20 08:25 [place] 5-325 Mg PO 1 tab Q4H PRN Administration Pain Rated 4-6 Hydrocodone Bitart/Acetaminophen 1 tab 07/15/20 16:54 07/17/20 03:48 [place] 7.5-325 Mg PO 1 tab Q4H PRN Administration Pain Rated 7-10 Enoxaparin Sodium 40 mg 07/16/20 09:00 07/17/20 08:25 Lovenox SUB-Q 40 mg DAILY ARMANI Administration Piperacillin/Tazobactam/Dextrose 3.375 gm in 50 mls @ 100 mls/hr 07/15/20 15:00 07/17/20 08:55 Zosyn 3.375 Gm/D5w 50ml Pm IVPB Infused Q6H ARMANI Infusion Methylprednisolone Sodium Succinate 40 mg 07/16/20 14:00 07/17/20 02:43 Solu-Medrol IV PUSH 40 mg Q12H ARMANI Administration Morphine Sulfate 2 mg 07/15/20 16:54 07/16/20 22:32 Morphine Sulfate Inj IV PUSH 2 mg Q2H PRN Administration Pain Rated 4-6 Morphine Sulfate 4 mg 07/15/20 16:54 07/16/20 02:34 Morphine Sulfate Inj IV PUSH 4 mg Q2H PRN Administration Pain Rated 7-10 Ondansetron HCl 4 mg 07/15/20 09:56 Zofran Inj IV PUSH Q4H PRN Nausea Radiology Results: ITS Impressions Abdomen/Pelvis CT 07/15/20 08:40 IMPRESSION: 1. Right perirectal abscess measuring 5.7 x 4 x 2.7 cm. 2: Abnormal thickening of the proximal sigmoid colon which may reflect focal colitis or malignancy. Recommend GI consultation. 3: Moderate gallbladder distention, nonspecific. Labs Labs: Laboratory Results - last 24 hr 07/17/20 07/17/20 04:54 04:54 WBC 7.7 RBC 3.75 L Hgb
[2020-07-17] MEDS: MORPHINE SULFATE 4 MG/ML INJ IV PUSH (10:43)
--- NOTE | 2020-07-17 11:43 | PCNFU ---
Nutrition Follow-Up Complete: Inadequate oral intake related to Crohn's disease/perirectal abscess as evidenced by NPO diet. Goal: Patient to meet estimated nutritional needs. Patient is progressing towards goal. We will continue current goal. Pt current nutrition is Regular. Nutrition recommendation: Agree Last recorded weight is 86.2 kg stable. Bowel Motility:+BM reported x 3, Diarrhea Labs Reviewed:Cr 0.6,Glu 216,Na 133,Hct 33.3, Hgb 10.1 Meds Noted:Zocyn,Solu Medrol, Lovenox Additional Notes: Patient seen today for nutrition follow. He states to tolerated regular diet, eating 80-100% of meals. Prefers the Ensure Compact chocolate. Request discussed with diet office today. Diarrhea has improved but still present. Monitoring: Follow up in 5 days.
--- NOTE | 2020-07-17 12:31 | PM.IMPN ---
Progress Note: A&P Assessment and Plan (1) Perirectal abscess: Code(s): K61.1 - Rectal abscess Status: Acute Assessment and Plan: He is s/p incision and drainage by Dr. Reddy performed on 07/15/2020. He tolerated the procedure well and pain is well controlled. General surgery is following and recommendations are appreciated. Continue with Zosyn at this time. Preliminary blood culture show NGTD. No specimens from I&D obtained for pathology. Will plan to transition to p.o. antibiotics at discharge to complete 5 days. Hopeful discharge tomorrow. Analgesics as needed for pain (2) Sepsis: Qualifiers: Sepsis type: sepsis due to unspecified organism Sepsis acute organ dysfunction status: without acute organ dysfunction Qualified Code(s): A41.9 - Sepsis, unspecified organism Code(s): A41.9 - Sepsis, unspecified organism Status: Acute Assessment and Plan: Suspected source of infection is perirectal abscess. Patient met SIRS criteria with tachycardia and leukocytosis. WBC was 17.0 at admission and has improved to 7.7 today. He remains afebrile and no longer tachycardic. Preliminary BCx with NGTD. Continue Zosyn as above IV fluids have been discontinued. Patient is tolerating p.o. intake. (3) Crohn's disease: Qualifiers: Gastrointestinal tract location: unspecified location Digestive disease complication type: without complication Qualified Code(s): K50.90 - Crohn's disease, unspecified, without complications Code(s): K50.90 - Crohn's disease, unspecified, without complications Status: Chronic Assessment and Plan: This is a new diagnosis for him. He recently had an inflectra infusion about 1 week ago. He is also on low-dose daily prednisone. He has been seen in consultation by GI. Continue IV Solu-Medrol today. Plan to transition to p.o. prednisone at discharge with slow taper. He will need to follow-up with his hotel recreational facilities manager in [place]. Subjective Date/time seen: 07/17/20 12:31 Interval history: Date of service: 07/17/2020 Mr. King is a 59-year-old male with a history of Crohn's disease who is seen in follow-up for perirectal abscess. 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 He is s/p I&D by Dr. Reddy on 07/15/2020. Reports his pain is improved today and he is resting more comfortably. He has had several loose bowel movements denies any discomfort or pain. He denies fever, chills, nausea, vomiting or abdominal pain. No dizziness or lightheadedness. Appetite has been good. No bleeding or bruising. No headache, dizziness, lightheadedness, shortness breath, cough, or chest pain. He is making arrangements for a flight back to [place] tomorrow. Review of Systems Review of Systems: Narrative: Twelve systems were reviewed with pertinent positives and negatives as per HPI. Exam Narrative: Exam Narrative: Mr. King is a well-nourished, well-appearing 59-year-old male who is lying supine in bed. He appears comfortable and is in no acute respiratory distress. HR 61, BP 145/74, RR 18, T 97.5?, 93% on room air Neuro: awake, alert and oriented x4, speech clear, no focal neuro deficits noted HEENMT: normocephalic, atraumatic, EOMI, sclerae anicteric, moist oral mucosa, tongue midline Neck: supple, no lymphadenopathy Respiratory: clear to auscultation bilaterally, nonlabored breathing Cardio: regular rate, regular rhythm with S1-S2 Abdomen: nondistended, normoactive bowel sounds, soft, nontender to palpation, no rigidity or guarding Extremities: no edema, erythema, cyanosis, clubbing, or tenderness to palpation, DP pulses 2+ bilaterally Skin: no rashes or lesions, warm and dry Psych: appropriate mood and affect, judgment and insight intact Objective Data Vital Signs Vital Signs: Vital Signs - 24 hr 07/16/20 14:00 07/16/20 22:00 07/17/20 06
[2020-07-17 13:28] VITALS: BP 127/75; PULSE 72; RESP 17; TEMP 36.4; O2SAT 95
[2020-07-17 20:00] VITALS: BP 140/83; PULSE 83; RESP 22; TEMP 35.9; O2SAT 98
[2020-07-18] MEDS: methylPREDNISolone SOD SUCC 40 MG VIAL IV PUSH (02:50)
[2020-07-18 04:00] VITALS: BP 131/56; PULSE 58; RESP 20; TEMP 36.1; O2SAT 98
[2020-07-18 05:47] LABS: Hematocrit 34.9 % (42.0-52.0); Hemoglobin 10.6 g/dL (14.0-18.0); Mean Corpuscular HGB Conc 30.4 g/dl (32-36); Mean Corpuscular Hemoglobin 26.9 pg (26-34); Mean Corpuscular Volume 88.6 fl (80-100); Mean Platelet Volume 8.7 fl (7.4-10.4); Platelet Count Result 430 k/mm3 (150-375); Red Blood Count 3.94 M/mm3 (4.6-6.20); Red Cell Distribution Width 17.9 % (11.5-14.5); White Blood Count 8.1 K/mm3 (4.5-10.0)
--- NOTE | 2020-07-18 07:56 | PM.DS ---
DS: Admitting Diagnosis Admitting Diagnosis Admitting Diagnosis: chrohn's disease, perirectal abscess DS: Discharge Diagnosis Discharge Diagnosis (1) Perirectal abscess: Code(s): K61.1 - Rectal abscess Status: Acute Assessment and Plan: He underwent incision and drainage by general surgeon Dr. Reddy performed on 07/15/2020. He tolerated the procedure well and pain remained well controlled. He was having bowel movements with minimal discomfort. He received 3 days of IV Zosyn. He will continue PO augmentin x2 days to complete 5 total days of antibiotics. Preliminary blood cultures showed NGTD and final cultures will be monitored. He may continue home [place] for pain control. (2) Sepsis: Qualifiers: Sepsis type: sepsis due to unspecified organism Sepsis acute organ dysfunction status: without acute organ dysfunction Qualified Code(s): A41.9 - Sepsis, unspecified organism Code(s): A41.9 - Sepsis, unspecified organism Status: Acute Assessment and Plan: Resolved. Source of infection is likely perirectal abscess. Patient met SIRS criteria with tachycardia and leukocytosis at presentation. WBC was 17.0 at admission and improved to 8.1 at discharge. Tachycardia resolved. He was afebrile. Preliminary BCx with NGTD. (3) Crohn's disease: Qualifiers: Gastrointestinal tract location: unspecified location Digestive disease complication type: without complication Qualified Code(s): K50.90 - Crohn's disease, unspecified, without complications Code(s): K50.90 - Crohn's disease, unspecified, without complications Status: Chronic Assessment and Plan: This is a new diagnosis for him several weeks ago. He recently had an inflectra infusion about 1 week ago per his GI doctor in [place]. He Was seen in consultation by GI doctor [facility] and started on IV Solu-Medrol. He was transition to slow prednisone taper starting at 40 mg and decreasing by 5 mg weekly. He is scheduled for an inflectra infusion back in [place] next week. He will need to follow-up with his sheet metal fabricator at home. DS: Summary Hospital Course Reason for hospitalization: Perirectal abscess Hospital Course: Date of admission: 07/15/2020 Date of discharge: 07/18/2020 Frank King this 59-year-old male with a recent diagnosis of Crohn's disease who presented to the emergency department on 07/15/2020 with complaints of diarrhea, abdominal pain, and a painful cyst on his buttock that he noticed 4 days prior to presentation. 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 He was passing through this area for work. at presentation, patient is mildly tachycardic with additional vital signs stable, WBC 17.1, platelets 442, electrolytes stable, and CT a/p showing right perirectal abscess [id number] and abnormal thickening of the proximal sigmoid colon which likely reflects colitis. he was admitted to the hospitalist service for further evaluation and management and was seen in consultation by general surgery. He underwent I& D in the OR on 07/15/2020. Please see above for further details. He tolerated the procedure well and his pain remained well-controlled. Given his overall improvement, he was determined to no longer require inpatient care. Patient felt comfortable with discharge home. He will be flying back to [place] and will follow-up with his PCP and sheet metal fabricator there. We discussed worrisome signs and symptoms for which he should seek care and he was educated on his medications. He was discharged in hemodynamically stable condition on 07/18/2020. Status at Discharge Functional status at discharge: independent ambulation Overall status at discharge: patient is progressing back to baseline Time Spent with Patient Time attestation: Total time spent providing and/or coordinating discharge services:45 minutes Time spent: Greater than 30 minutes Arvind
[2020-07-18] MEDS: ENOXAPARIN 40 MG/0.4 ML SYRINGE SUB-Q (08:14)
--- NOTE | 2020-07-23 13:49 | PC.NURSE ---
Blood cx are negative
== END 2020-07-18 10:49 | disposition home or self-care (01) | DRG 710 ==
LOC: ANHED 07:40 → ANH2MED 10:41
PROVIDERS: Emergency Medicine; Surgery; Admitting Provider Internal Medicine; Emergency Provider General Practice; Visit Provider Physician Assistant
PROC: 0D9P0ZZ Drainage of Rectum, Open Approach (ICD-10-PCS; CPT 46040; principal; 2020-07-15 15:00)
DX: A41.9 Sepsis, unspecified organism (principal); K50.90 Crohn's disease, unspecified, without complications; K61.1 Rectal abscess; Z96.651 Presence of right artificial knee joint; Z79.899 Other long term (current) drug therapy
CPT/HCPCS: 36415; 51701; 74177; 80053; 81001; 83605; 83690; 85025; 85027; 87040; 96361; 96365; 96375; 99285; A9270; J0131; J1100; J1170; J1650; J1885; J2270; J2405; J2543; J2704; J2920; J3010; J7030; J7120; Q9967